=== PATIENT | female | born 1990 | race Caucasian/White ===

== ENCOUNTER 2017-05-01 17:35 | Emergency (ER) | payer MEDICAID ==
[2017-05-01 17:39] VITALS: BP 130/78
--- NOTE | 2017-05-01 18:14 | EDM.PDOC ---
ED HPI GENERAL MEDICAL PROBLEM - General Chief Complaint: Upper Extremity Injury/Pain Stated Complaint: shoulder injury Time Seen by Provider: 05/01/17 17:51 Source of Information: Reports: Patient History Limitations: Reports: No Limitations - History of Present Illness INITIAL COMMENTS - FREE TEXT/NARRATIVE: This patient is a 26 year old female that presents to the ER. 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 Patient reports after this having right shoulder pain. 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 She reports it hurts worse with ROM. Patient pulses +2, cap refill <2 sec, sensory/motor function intact. Neurovascular intact. 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 Right Shoulder Pain Score (Numeric/FACES): 5 - Related Data Allergies Allergy/AdvReac Type Severity Reaction Status Date / Time amitriptyline Allergy Rash Verified 05/01/17 17:40 penicillin Allergy Hives Verified 05/01/17 17:40 Sulfa (Sulfonamide Allergy Anaphylactic Verified 05/01/17 17:40 Antibiotics) Shock tramadol Allergy Irritabilit Verified 05/01/17 17:40 y Home Meds: Home Meds Acetaminophen [Tylenol] 650 mg PO Q4H PRN 07/23/16 [History] Ibuprofen 200 mg PO Q6H PRN 10/20/16 [History] Amphetamine/Dextroamphetamine [Adderall XR] 20 mg PO DAILY 05/01/17 [History] OXcarbazepine [Trileptal] 450 mg PO BEDTIME 05/01/17 [History] QUEtiapine [SEROquel] 25 mg PO DAILY PRN 05/01/17 [History] Sertraline HCl [Zoloft] 100 mg PO BEDTIME 05/01/17 [History] Past Medical History Other Gastrointestinal History: hernia 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 (See Below) Other OB/BYN History: premature delivery, high risk Psychiatric History: Reports: Anxiety, Bipolar, Other (See Below) Other Psychiatric History: mood disorder Other Dermatologic History: acne - Past Surgical History HEENT Surgical History: Reports: Tonsillectomy GI Surgical History: Reports: Appendectomy, Cholecystectomy, Hernia, Inguinal Female Surgical History: Reports: Section Other Musculoskeletal Surgeries/Procedures:: ORIF left femur, bilat knee reconstruction Social & Family History - Family History Family Medical History: Noncontributory - Tobacco Use Smoking Status *Q: Never Smoker Second Hand Smoke Exposure: No - Caffeine Use Caffeine Use: Reports: None - Recreational Drug Use Recreational Drug Use: No Review of Systems - Review of Systems Review Of Systems: See Below Constitutional: Reports: No Symptoms Eyes: Reports: No Symptoms Ears: Reports: No Symptoms Nose: Reports: No Symptoms Mouth/Throat: Reports: No Symptoms Respiratory: Reports: No Symptoms Cardiovascular: Reports: No Symptoms GI/Abdominal: Reports: No Symptoms Genitourinary: Reports: No Symptoms Musculoskeletal: Reports: Shoulder Pain (right shoulder) Skin: Reports: No Symptoms Neurological: Reports: No Symptoms Psychiatric: Reports: No Symptoms ED EXAM, GENERAL - Physical Exam Exam: See Below Exam Limited By: No Limitations General Appearance: Alert, WD/WN, No Apparent Distress Ears: Normal External Exam, Hearing Grossly Normal Respiratory/Chest: No Respiratory Distress, Lungs Clear, Normal Breath Sounds, No Accessory Muscle Use Cardiovascular: Normal Peripheral Pulses, Regular Rate, Rhythm, No Edema, No Gallop, No JVD, No Murmur, No Rub Peripheral Pulses: 2+: Radial (L), Radial (R) Back Exam: Normal Inspection, Full Range of Motion. No: Decreased Range of Motion, Muscle Spasm, Paraspinal Tenderness, Vertebral Tenderness Extremities: Limited Range of Motion (not able to raise arm past a 45 degree angle due to pain right shoulder. ), Other (right posterior mild shoulder pain, tenderness. ). No: Pedal Edema, Slow Capillary Refill, Joint Swelling, Arm Pain , Maryellen's Sign, Leg Pain, Increased Warmth, Mottled, Pallor, Redness Neurological: Alert, Oriented, Normal Gait Psychiatric: Normal Affect, Normal Mood Skin Exam: Warm, Dry, Intact, Normal Color, No Rash Course - Vital Signs Last Recorded V/S: Last Vital Signs Temp 96.7 F 05/01/17 17:37 Pulse 82 05/01/17 17:37 Resp 20 05/01/17 17:37 BP 130/78 05/01/17 17:37 Pulse Ox 97 05/01/17 17:37 - Orders/Labs/Meds Orders: Active Orders 24 hr Category Date Time Status Shoulder Comp Rt [CR] Stat Exams 05/01/17 17:45 Ordered - Radiology Interpretation Free Text/Narrative:: Right shoulder: No fracture, no dislocation, no OA. Departure - Departure Time of Disposition: 18:12 Disposition: Home, Self-Care 01 Condition: good Clinical Impression: Sprain of right shoulder Qualifiers: Encounter type: initial encounter Shoulder sprain type: unspecified sprain Qualified Code(s): S43.401A - Unspecified sprain of right shoulder joint, initial encounter - Discharge Information Instructions: Shoulder Pain, [id number] Referrals: PCP,None [Primary Care Provider] - Forms: ED Department Discharge Additional Instructions: Followup with your primary care provider if pain continues Return to the ER for worsening of condition or any emergent concerns Rest Ice Elevate IbuProfen as needed for pain Limit use of right shoulder for 1 week [place] 5/325mg 1 pill every 6 hours as needed for pain #10 no refill: Do not take while driving, operating heavy machinery, or while in clinicals delivering patient care. - My Orders Last 24 Hours: My Active Orders 05/01/17 17:45 Shoulder Comp Rt [CR] Stat - Assessment/Plan Last 24 Hours: My Active Orders 05/01/17 17:45 Shoulder Comp Rt [CR] Stat Plan: PLEASE SEE RN NOTE FOR PFSH.
== END 2017-05-01 18:25 | disposition home or self-care (01) ==
LOC: CC.ED 17:35
DX: S43.401A Unspecified sprain of right shoulder joint, initial encounter (principal); F41.9 Anxiety disorder, unspecified; F31.9 Bipolar disorder, unspecified; Z90.49 Acquired absence of other specified parts of digestive tract; Z98.890 Other specified postprocedural states; Z96.653 Presence of artificial knee joint, bilateral; Z79.899 Other long term (current) drug therapy; Z88.2 Allergy status to sulfonamides; Z88.5 Allergy status to narcotic agent; Z88.0 Allergy status to penicillin; Z88.8 Allergy status to other drugs, medicaments and biological substances; X50.0XXA Overexertion from strenuous movement or load, initial encounter; Y93.89 Activity, other specified; Y99.0 Civilian activity done for income or pay
CPT/HCPCS: 73030-RT; 99283

== ENCOUNTER 2017-10-22 20:20 | Emergency (ER) | payer MEDICAID ==
--- NOTE | 2017-10-22 20:37 | EDM.PDOC ---
ED HPI GENERAL MEDICAL PROBLEM - General Chief Complaint: General Stated Complaint: flank pain Time Seen by Provider: 10/22/17 20:30 Source of Information: Reports: Patient History Limitations: Reports: No Limitations - History of Present Illness INITIAL COMMENTS - FREE TEXT/NARRATIVE: States about an hour ago she started to have left flank pain. She describes it as sharp and stabbing. Has history of pyelonephritis. Normal bowel movement this AM. Has been eating and drinking normally. Has not noted any blood in urine. No nausea with it. Onset: Sudden Onset Date: 10/22/17 Onset Time: 20:30 Location: Reports: Abdomen, Other (left flank) Quality: Reports: Sharp Associated Symptoms: Denies: Fever/Chills, Nausea/Vomiting, Shortness of Breath - Related Data Allergies Allergy/AdvReac Type Severity Reaction Status Date / Time amitriptyline Allergy Rash Verified 10/22/17 20:26 penicillin Allergy Hives Verified 10/22/17 20:26 Sulfa (Sulfonamide Allergy Anaphylactic Verified 10/22/17 20:26 Antibiotics) Shock tramadol Allergy Irritabilit Verified 10/22/17 20:26 y Home Meds: Home Meds Acetaminophen [Tylenol] 650 mg PO Q4H PRN 07/23/16 [History] Ibuprofen 200 mg PO Q6H PRN 10/20/16 [History] OXcarbazepine [Trileptal] 450 mg PO BEDTIME 05/01/17 [History] QUEtiapine [SEROquel] 25 mg PO DAILY PRN 05/01/17 [History] Sertraline HCl [Zoloft] 100 mg PO BEDTIME 05/01/17 [History] Spironolactone [Aldactone] 100 mg PO DAILY 10/22/17 [History] Past Medical History Other Gastrointestinal History: hernia 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) Other OB/BYN History: premature delivery, high risk Psychiatric History: Reports: Anxiety, Bipolar, Other (See Below) Other Psychiatric History: mood disorder Other Dermatologic History: acne - Past Surgical History HEENT Surgical History: Reports: Tonsillectomy GI Surgical History: Reports: Appendectomy, Cholecystectomy, Hernia, Inguinal Female Surgical History: Reports: Section Other Musculoskeletal Surgeries/Procedures:: ORIF left femur, bilat knee reconstruction Social & Family History - Family History Family Medical History: Noncontributory - Tobacco Use Smoking Status *Q: Never Smoker Second Hand Smoke Exposure: No - Caffeine Use Caffeine Use: Reports: None - Recreational Drug Use Recreational Drug Use: No ED ROS GENERAL - Review of Systems Review Of Systems: See Below Constitutional: Denies: Fever, Chills, Weakness HEENT: Reports: No Symptoms Respiratory: Reports: No Symptoms Cardiovascular: Reports: No Symptoms GI/Abdominal: Reports: Abdominal Pain : Reports: Flank Pain. Denies: Dysuria, Hematuria, Urgency Musculoskeletal: Reports: No Symptoms Skin: Reports: No Symptoms Neurological: Reports: No Symptoms ED EXAM, GENERAL - Physical Exam Exam: See Below Exam Limited By: No Limitations General Appearance: Alert, WD/WN, Moderate Distress Ears: Normal External Exam, Normal Canal, Normal TMs Respiratory/Chest: No Respiratory Distress, Lungs Clear, Normal Breath Sounds Cardiovascular: Regular Rate, Rhythm, No Murmur GI/Abdominal: Normal Bowel Sounds, Soft, Other (tender to the left flank area. less pain to the left lower quadrant. No guarding or rigidity.) Back Exam: Normal Inspection Extremities: Normal Inspection, Non-Tender Neurological: Alert, Oriented Skin Exam: Warm, Dry, Intact Course - Re-Assessments/Exams Free Text/Narrative Re-Assessment/Exam: 10/22/17 21:00 discussed normal labs and negative test. States that the pain has moved down more in her left lower back and buttock. She does have a bruise from previous injury noted. I'm able to intensify the pain with palpation of the area. Departure - Departure Time of Disposition: 21:04 Disposition: Home, Self-Care 01 Condition: Good Clinical Impression: Musculoskeletal back pain - Discharge Information Referrals: Jorge Barragan MD [Primary Care Provider] - Additional Instructions: continue the heating pad at home. Meloxicam daily at home tylenol or advil as needed for discomfort in between if needed If not improving may benefit from physical therapy. Call the clinic if not improving and I will arrange. Recheck if pain worsens. - Problem List & Annotations (1) Musculoskeletal back pain SNOMED Code(s): 674073732 Code(s): M54.9 - DORSALGIA, UNSPECIFIED Status: Acute Priority: High Current Visit: Yes - Problem List Review Problem List Initiated/Reviewed/Updated: Yes
[2017-10-22 20:41] VITALS: BP 120/74
[2017-10-22 20:49] LABS: CHLORIDE,CL 104 mEq/L (98-106); SODIUM,NA 140 mEq/L (136-145)
[2017-10-22] MEDS ORDERED: Ketorolac 60 MG/2 ML SDV IM ONE (20:58)
[2017-10-22] MEDS ORDERED: Meloxicam 7.5 MG Tab ONE ×2 (21:16→21:30)
[2017-10-23] MEDS ORDERED: Meloxicam 7.5 MG Tab PO SCH (08:00)
== END 2017-10-22 21:15 | disposition home or self-care (01) ==
LOC: CC.ED 20:20
DX: M54.9 Dorsalgia, unspecified (principal); R10.32 Left lower quadrant pain; F31.9 Bipolar disorder, unspecified; Z79.899 Other long term (current) drug therapy; Z88.0 Allergy status to penicillin; Z88.2 Allergy status to sulfonamides; Z88.5 Allergy status to narcotic agent; Z88.8 Allergy status to other drugs, medicaments and biological substances
CPT/HCPCS: 36415; 80048; 81001; 81025; 85025; 86140; 96372; 99283; J1885

== ENCOUNTER 2018-01-06 09:07 | Emergency (ER) | payer MEDICAID ==
[2018-01-06 09:21] VITALS: BP 135/76
--- NOTE | 2018-01-06 09:32 | EDM.PDOC ---
ED HPI GENERAL MEDICAL PROBLEM - General Chief Complaint: Flank Pain Stated Complaint: NAUSEA/VOMMITTING/FEVER/ABD PAIN Time Seen by Provider: 01/06/18 09:30 Source of Information: Reports: Patient - History of Present Illness INITIAL COMMENTS - FREE TEXT/NARRATIVE: Nadine is a 27 year old female who presents to the ED with complaints of left flank pain. She reports the pain first started about 4 days ago and has increased in intensity since then. She describes the pain as a dull ache with intermittent episodes of sharp stabbing pain. She reports the the past few days she has been taking Meloxicam and Tylenol for the pain. She has not gotten nauseated. She last took meloxicam last evening. She did not take it this morning as she has not been able to eat anything. She does report a history of ovarian cysts. She reports she has had two surgically removed and one of the larger ones resolved on its own. She reports the pain is similar to when she has had these in the past. She does also report a history of pyelonephritis. She reports she does not get a menstrual period, as she has an IUD (Mirena). She reports she had this put in ~ 1 year ago. She did report she had some vaginal spotting two days ago, and she tends to get this when she has a cyst. Denies any vomiting, diarrhea, constipation, chest pain. Does feel like she maybe had a fever and chills at home. She is afebrile in the ED. Onset Date: 01/02/18 Duration: Getting Worse Location: Reports: Abdomen, Radiates to (left flank) Quality: Reports: Ache, Dull, Sharp, Stabbing Severity: Moderate Improves with: Reports: Medication Worsens with: Reports: Movement Context: Reports: Activity Associated Symptoms: Reports: Fever/Chills, Loss of Appetite, Nausea/Vomiting. 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 Left Flank Pain Score (Numeric/FACES): 6 - Related Data Allergies Allergy/AdvReac Type Severity Reaction Status Date / Time amitriptyline Allergy Rash Verified 01/06/18 09:22 Sulfa (Sulfonamide Allergy Anaphylactic Verified 02/13/18 09:22 Antibiotics) Shock tramadol Allergy Irritabilit Verified 01/06/18 09:22 y Home Meds: Home Meds Acetaminophen [Tylenol] 650 mg PO Q4H PRN 07/23/16 [History] Ibuprofen 200 mg PO Q6H PRN 10/20/16 [History] OXcarbazepine [Trileptal] 450 mg PO BEDTIME 05/01/17 [History] QUEtiapine [SEROquel] 25 mg PO DAILY PRN 05/01/17 [History] Sertraline HCl [Zoloft] 200 mg PO BEDTIME 05/01/17 [History] Spironolactone [Aldactone] 100 mg PO DAILY 10/22/17 [History] Meloxicam 15 mg PO DAILY 01/06/18 [History] Meloxicam [Mobic] 15 mg PO BID PRN #20 tablet 01/06/18 [Rx] Ondansetron HCl [Zofran] 4 mg PO Q6H PRN #20 tablet 01/06/18 [Rx] Past Medical History Other Gastrointestinal History: 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 (See Below) Other OB/BYN History: premature delivery, high risk Psychiatric History: Reports: Anxiety, Bipolar, Other (See Below) Other Psychiatric History: mood disorder Other Dermatologic History: acne - Past Surgical History HEENT Surgical History: Reports: Tonsillectomy GI Surgical History: Reports: Appendectomy, Cholecystectomy, Hernia, Inguinal Female Surgical History: Reports: Section Other Musculoskeletal Surgeries/Procedures:: ORIF left femur, bilat knee reconstruction Social & Family History - Family History Family Medical History: Noncontributory - Tobacco Use Smoking Status *Q: Never Smoker Second Hand Smoke Exposure: No - Caffeine Use Caffeine Use: Reports: None - Recreational Drug Use Recreational Drug Use: No ED ROS GENERAL - Review of Systems Review Of Systems: See Below Constitutional: Reports: Fever, Chills, Fatigue. Denies: Weakness HEENT: Reports: No Symptoms Respiratory: Reports: No Symptoms Cardiovascular: Reports: No Symptoms Endocrine: Reports: No Symptoms GI/Abdominal: Reports: Abdominal Pain, Decreased Appetite, Nausea. Denies: Black Stool, Bloody Stool, Constipation, Diarrhea, Distension, Flatus, Hematemesis, Hematochezia, Melena, Vomiting : Reports: Flank Pain, Other (vaginal spotting ). Denies: Dysuria, Frequency , Hematuria, Urgency Musculoskeletal: Reports: Back Pain Skin: Reports: No Symptoms Neurological: Reports: No Symptoms Psychiatric: Reports: No Symptoms Hematologic/Lymphatic: Reports: No Symptoms Immunologic: Reports: No Symptoms ED EXAM, RENAL/ - Physical Exam Exam: See Below Exam Limited By: No Limitations General Appearance: Alert, WD/WN, Mild Distress Head: Atraumatic, Normocephalic Neck: Normal Inspection, Supple, Non-Tender, Full Range of Motion Respiratory/Chest: No Respiratory Distress, Lungs Clear, Normal Breath Sounds, No Accessory Muscle Use, Chest Non-Tender Cardiovascular: Normal Peripheral Pulses, Regular Rate, Rhythm, No Edema, No Gallop, No JVD, No Murmur, No Rub GI/Abdominal: Normal Bowel Sounds, Soft, No Distention, No Mass, Tender (LLQ, epigastric, flank). No: Guarding, Rigid, Rebound Back Exam: Normal Inspection, Full Range of Motion. No: CVA Tenderness (L), CVA Tenderness (R) Extremities: Normal Inspection, Normal Range of Motion, Non-Tender, Normal Capillary Refill, No Pedal Edema Neurological: Alert, Oriented, CN II-XII Intact, Normal Cognition, Normal Gait, Normal Reflexes, No Motor/Sensory Deficits Psychiatric: Normal Affect, Normal Mood Skin Exam: Warm, Dry, Intact, Normal Color, No Rash Lymphatic: No Adenopathy Course - Vital Signs Last Recorded V/S: Last Vital Signs Temp 98.5 F 01/06/18 09:18 Pulse 82 01/06/18 09:18 Resp 18 01/06/18 09:18 BP 135/76 01/06/18 09:18 Pulse Ox 100 01/06/18 09:18 - Orders/Labs/Meds Orders: Active Orders 24 hr Category Date Time Status Transvaginal Non OB [US] Routine Exams 01/06/18 12:05 Taken Sodium Chloride 0.9% [Normal Saline] 500 ml Med 01/06/18 10:45 Active IV .BOLUS Medication Orders Sodium Chloride (Normal Saline) 500 mls @ 999 mls/hr IV .BOLUS KAYLAN Last Admin: 01/06/18 10:47 Dose: 999 mls/hr Labs: Laboratory Tests 01/06/18 01/06/18 01/06/18 Range/Units 09:35 09:35 10:00 WBC 7.7 (5.0-10.0) 10^3/uL RBC 4.84 (4.00-5.50) 10^6/uL Hgb 14.5 (12.0-16.0) g/dL Hct 41.6 (37.0-47.0) % MCV 86.0 (82.0-94.0) fL MCH 30.0 (27.0-32.0) pg MCHC 34.9 (33.0-38.0) g/dL RDW Coeff of [place] 12.4 (11.0-15.0) % Plt Count 264 (150-400) 10^3/uL Neut % (Auto) 78.7 (35-85) % Lymph % (Auto) 11.6 (10-55) % [place] % (Auto) 9.0 (0-16) % Eos % (Auto) 0.4 (0-5) % Baso % (Auto) 0.3 (0-3) % Neut # (Auto) 6.07 (1.80-7.00) 10^3/uL Lymph # (Auto) 0.89 L (1.00-4.80) 10^3/uL [place] # (Auto) 0.69 (0.00-0.80) 10^3/uL Eos # (Auto) 0.03 (0.00-0.45) 10^3/uL Baso # (Auto) 0.02 10^3/uL Sodium 136 (136-145) mEq/L Potassium 4.0 (3.5-5.0) mEq/L Chloride 102 (98-106) mEq/L Carbon Dioxide 24 (21-32) mmol/L BUN 12 (7-18) mg/dL Creatinine 1.0 (0.6-1.0) mg/dL Est Cr Clr Drug Dosing 74.69 mL/min Estimated GFR (MDRD) > 60 (>=60) mL/min Glucose 93 (75-99) mg/dL Calcium 8.8 (8.4-10.1) mg/dL Total Bilirubin 0.4 (0.0-1.0) mg/dL AST 21 (15-37) U/L ALT 23 (12-78) U/L Alkaline Phosphatase 88 (46-116) U/L C-Reactive Protein 1.8 H (0.2-0.8) mg/dL Total Protein 7.0 (6.4-8.2) g/dL Albumin 3.9 (3.4-5.0) g/dL Amylase 51 (25-115) U/L Urine Color (YELLOW) Urine Appearance (CLEAR) Urine pH (4.5-8.0) Ur Specific [place] (1.003-1.020) Urine Protein (NEGATIVE) mg/dL Urine Glucose (UA) (NEGATIVE) mg/dL Urine Ketones (NEGATIVE) mg/dL Urine Occult Blood (NEGATIVE) Urine Nitrite (NEGATIVE) Urine Bilirubin (NEGATIVE) Urine Urobilinogen (0.2-1.0) EU/dL Ur Leukocyte Esterase (NEGATIVE) Urine RBC (0-5) /HPF Urine WBC (0-5) /HPF Ur Epithelial Cells (NOT SEEN) /HPF Urine Mucus (NOT SEEN) /HPF Urine HCG, Qual Negative 01/06/18 Range/Units 10:00 WBC (5.0-10.0) 10^3/uL RBC (4.00-5.50) 10^6/uL Hgb (12.0-16.0) g/dL Hct (37.0-47.0) % MCV (82.0-94.0) fL MCH (27.0-32.0) pg MCHC (33.0-38.0) g/dL RDW Coeff of [place]wige (11.0-15.0) % Plt Count (150-400) 10^3/uL Neut % (Auto) (35-85) % Lymph % (Auto) (10-55) % [place] % (Auto) (0-16) % Eos % (Auto) (0-5) % Baso % (Auto) (0-3) % Neut # (Auto) (1.80-7.00) 10^3/uL Lymph # (Auto) (1.00-4.80) 10^3/uL [place] # (Auto) (0.00-0.80) 10^3/uL Eos # (Auto) (0.00-0.45) 10^3/uL Baso # (Auto) 10^3/uL Sodium (136-145) mEq/L Potassium (3.5-5.0) mEq/L Chloride (98-106) mEq/L Carbon Dioxide (21-32) mmol/L BUN (7-18) mg/dL Creatinine (0.6-1.0) mg/dL Est Cr Clr Drug Dosing mL/min Estimated GFR (MDRD) (>=60) mL/min Glucose (75-99) mg/dL Calcium (8.4-10.1) mg/dL Total Bilirubin (0.0-1.0) mg/dL AST (15-37) U/L ALT (12-78) U/L Alkaline Phosphatase (46-116) U/L C-Reactive Protein (0.2-0.8) mg/dL Total Protein (6.4-8.2) g/dL Albumin (3.4-5.0) g/dL Amylase (25-115) U/L Urine Color Yellow (YELLOW) Urine Appearance Clear (CLEAR) Urine pH 6.0 (4.5-8.0) Ur Specific [place] 1.020 (1.003-1.020) Urine Protein Negative (NEGATIVE) mg/dL Urine Glucose (UA) Negative (NEGATIVE) mg/dL Urine Ketones Trace H (NEGATIVE) mg/dL Urine Occult Blood Negative (NEGATIVE) Urine Nitrite Negative (NEGATIVE) Urine Bilirubin Negative (NEGATIVE) Urine Urobilinogen 0.2 (0.2-1.0) EU/dL Ur Leukocyte Esterase Negative (NEGATIVE) Urine RBC Not seen (0-5) /HPF Urine WBC Not seen (0-5) /HPF Ur Epithelial Cells Moderate H (NOT SEEN) /HPF Urine Mucus Occasional H (NOT SEEN) /HPF Urine HCG, Qual Meds: Medications Generic Name Dose Route Start Last Admin Trade Name Freq PRN Reason Stop Dose Admin Sodium Chloride 500 mls @ 999 mls/hr 01/06/18 10:45 01/06/18 10:47 Normal Saline IV 999 mls/hr .BOLUS KAYLAN Administration Discontinued Medications Generic Name Dose Route Start Last Admin Trade Name Freq PRN Reason Stop Dose Admin Acetaminophen 650 mg 01/06/18 10:37 01/06/18 10:41 Tylenol PO 01/06/18 10:38 650 mg NOW ONE Administration Fentanyl 50 mcg 01/06/18 09:42 01/06/18 10:02 Sublimaze IVPUSH 01/06/18 09:43 50 mcg ONETIME ONE Administration Ketorolac Tromethamine 30 mg 01/06/18 12:38 01/06/18 12:42 Toradol IVPUSH 01/06/18 12:39 30 mg ONETIME ONE Administration Ondansetron HCl 4 mg 01/06/18 09:41 01/06/18 10:00 Zofran IVPUSH 01/06/18 09:42 4 mg STAT STA Administration - Re-Assessments/Exams Free Text/Narrative Re-Assessment/Exam: Discussed lab results with patient. All labs stable. Will proceed with pelvic US. Fentanyl given to patient. Did cause headache, so Tylenol administered. Patient given IVF to fill bladder for US. US shows 2.8 x 2.5 x 1.9 cm simple cyst to left ovary, otherwise negative. Discussed with patient. Continues to rate pain 6/10. Will give 1 dose of toradol. Patient reports she ran out of Meloxicam. Will refill script. Script provided for zofran as well. Departure - Departure Time of Disposition: 12:44 Disposition: Home, Self-Care 01 Condition: Good Clinical Impression: Ovarian cyst, left - Discharge Information Prescriptions: Meloxicam [Mobic] 15 mg PO BID PRN #20 tablet PRN Reason: Pain Ondansetron HCl [Zofran] 4 mg PO Q6H PRN #20 tablet PRN Reason: Nausea Instructions: Ovarian Cyst, [id number] Referrals: PCP,None [Primary Care Provider] - Forms: ED Department Discharge Additional Instructions: Repeat US in 2-3 months if issues continue Cyst appears simple in nature Meloxicam and Tylenol as needed for pain Apply heat to affected area Push fluids Zofran as needed for nausea Follow up if symptoms worsen or do not improve - My Orders Last 24 Hours: My Active Orders 01/06/18 10:45 Sodium Chloride 0.9% [Normal Saline] 500 ml IV .BOLUS 01/06/18 12:05 Transvaginal Non OB [US] Routine - Assessment/Plan Last 24 Hours: My Active Orders 01/06/18 10:45 Sodium Chloride 0.9% [Normal Saline] 500 ml IV .BOLUS 01/06/18 12:05 Transvaginal Non OB [US] Routine
[2018-01-06] MEDS ORDERED: Ondansetron 4 MG/2 ML SDV IVPUSH STA (09:41)
[2018-01-06] MEDS ORDERED: fentaNYL 100 MCG/2 ML SDV IVPUSH ONE (09:42)
[2018-01-06 09:53] LABS: CHLORIDE,CL 102 mEq/L (98-106); SODIUM,NA 136 mEq/L (136-145)
[2018-01-06] MEDS ORDERED: Acetaminophen 325 MG Tab PO ONE (10:37)
[2018-01-06] MEDS ORDERED: Sodium Chloride 0.9% 500 ML IV SCH (10:45)
[2018-01-06] MEDS ORDERED: Ketorolac 30 MG/ML SDV IVPUSH ONE (12:38)
== END 2018-01-06 12:53 | disposition home or self-care (01) ==
LOC: CC.ED 09:07
DX: N83.292 Other ovarian cyst, left side (principal); F31.9 Bipolar disorder, unspecified; Z79.899 Other long term (current) drug therapy; Z88.2 Allergy status to sulfonamides; Z88.5 Allergy status to narcotic agent; Z88.8 Allergy status to other drugs, medicaments and biological substances
CPT/HCPCS: 36415; 76830; 80053; 81001; 81025; 82150; 85025; 86140; 96365; 96375; 99284; A9270; J1885; J2405; J3010; J7040

== ENCOUNTER 2025-03-17 15:25 | Emergency (ER) | payer MEDICAID ==
[2025-03-17 16:01] VITALS: BP 126/78; PULSE 88
[2025-03-17] MEDS: Ketorolac 30 MG/ML SDV IM ONE (16:11)
[2025-03-17] MEDS: Ondansetron 4 MG Tab.DIS PO ONE (16:11)
== END 2025-03-17 17:57 | disposition home or self-care (01) ==
LOC: CC.ED 15:25
DX: H65.192 Other acute nonsuppurative otitis media, left ear (principal); H72.92 Unspecified perforation of tympanic membrane, left ear; Z90.49 Acquired absence of other specified parts of digestive tract; Z88.0 Allergy status to penicillin; Z88.2 Allergy status to sulfonamides; Z88.5 Allergy status to narcotic agent; Z88.8 Allergy status to other drugs, medicaments and biological substances; Z79.899 Other long term (current) drug therapy
CPT/HCPCS: 96372; 99283; A9270-GY; J1885